=== PATIENT | male | born 1955 | race African-American/Black ===

== ENCOUNTER 2017-04-21 09:13 | Emergency (ER) | payer MEDICAID, OTHER ==
[~2017-04-21] VITALS: Ht 177.8 cm; Wt 152.0 kg
[2017-04-21] MEDS ORDERED: METF500T4 PO (09:19)
[2017-04-21] MEDS ORDERED: MORPHINE SULFATE 4 MG/ML CPJ (NOT FOR IM USE) IV STA (09:40)
[2017-04-21] MEDS ORDERED: ONDANSETRON HCL 4MG/2ML VIAL IV STA (09:40)
[2017-04-21 10:04] LABS: BASOPHILS % 0.4 % (0.0-2.0); EOSINOPHILS % 1.5 % (0.0-5.0); HEMOGLOBIN. 12.3 g/dL (14.0-18.0); LYMPHOCYTES % 16.2 % (20.0-50.0); MEAN CORPUSCULAR HEMOGLOBIN 22.6 pg (28.0-32.0); MEAN CORPUSCULAR VOLUME 71.9 fL (80.0-94.0); MEAN PLATELET VOLUME 9.9 fl (7.4-10.4); MONOCYTES % 13.4 % (2.0-8.0); NEUTROPHILS % 68.5 % (40.0-76.0); PLATELET 158 x1000/uL (130-400); RED BLOOD CELL COUNT 5.42 mill/uL (4.7-6.1); RED CELL DISTRIBUTION WIDTH 16.1 % (11.6-14.6)
[2017-04-21 10:11] LABS: PROTHROMBIN TIME 10.1 sec (9.4-11.6)
[2017-04-21 10:16] LABS: CHLORIDE 105 mEq/L (98-107)
[2017-04-21 10:20] LABS: TROPONIN I < 0.02 ng/mL (0.00-0.04)
[2017-04-21 11:23] LABS: CLARITY URINE CLEAR (CLEAR); COLOR URINE YELLOW (YELLOW); KETONES URINE TRACE (NEGATIVE); LEUKOCYTE ESTERASE URINE TRACE (NEGATIVE); NITRITE URINE NEGATIVE (NEGATIVE); OCCULT BLOOD URINE NEGATIVE (NEGATIVE); PROTEIN URINE NEGATIVE (NEGATIVE)
[2017-04-21] MEDS ORDERED: CLONIDINE 0.1MG TABLET PO ONE (12:15)
[2017-04-21] MEDS ORDERED: CEFTRIAXONE 1 G PREMIX 50 ML IV ONE (12:15)
[2017-04-21 14:19] VITALS: BP 128/72
== END 2017-04-21 14:31 | disposition home or self-care (01) ==
LOC: ER 09:22
DX: M54.89 Other dorsalgia (principal); N39.0 Urinary tract infection, site not specified; M13.862 Other specified arthritis, left knee; J45.909 Unspecified asthma, uncomplicated; I10 Essential (primary) hypertension; E11.9 Type 2 diabetes mellitus without complications; F12.10 Cannabis abuse, uncomplicated; E66.01 Morbid (severe) obesity due to excess calories; F17.210 Nicotine dependence, cigarettes, uncomplicated; Z68.42 Body mass index [BMI] 45.0-49.9, adult; Z71.6 Tobacco abuse counseling; Z87.828 Personal history of other (healed) physical injury and trauma
CPT/HCPCS: 36415; 71045; 73560; 80053; 81003; 83605; 83690; 83880; 84484; 85025; 85610; 93005; 96365; 96375; 99285; 99406; J0696; J2270; J2405

== ENCOUNTER 2017-11-10 13:12 | Emergency (ER) | payer MEDICAID ==
[~2017-11-10] VITALS: Ht 175.3 cm; Wt 120.0 kg
[~2017-11-10 13:12] MED LIST: METF500T6 PO
[2017-11-10 14:52] LABS: CHLORIDE 102 mEq/L (98-107)
[2017-11-10 15:39] LABS: BASOPHILS % 0.3 % (0.0-2.0); EOSINOPHILS % 1.2 % (0.0-5.0); HEMATOCRIT. 33.2 % (42.0-52.0); HEMOGLOBIN. 10.7 g/dL (14.0-18.0); LYMPHOCYTES % 22.7 % (20.0-50.0); MEAN CORPUSCULAR VOLUME 71.5 fL (80.0-94.0); MEAN PLATELET VOLUME 4.4 fl (7.4-10.4); MONOCYTES % 10.7 % (2.0-8.0); NEUTROPHILS % 65.1 % (40.0-76.0); RED BLOOD CELL COUNT 4.65 mill/uL (4.7-6.1); RED CELL DISTRIBUTION WIDTH 16.4 % (11.6-14.6)
[2017-11-10 15:48] LABS: PLATELET 9 x1000/uL (130-400)
[2017-11-10 16:46] LABS: PLATELET ESTIMATE MARKEDLY DECREASED
[2017-11-10 17:30] VITALS: BP 138/78
[2017-11-11] MEDS ORDERED: OXYC-610 PO (18:25)
[2017-11-11] MEDS ORDERED: FURO40TA5 PO (18:25)
[2017-11-11] MEDS ORDERED: HYDR12.54 PO (18:25)
[2017-11-11] MEDS ORDERED: CALC-3 PO (18:25)
[2017-11-11] MEDS ORDERED: SIMV20TA6 PO (18:25)
[2017-11-11] MEDS ORDERED: MULT-1146 PO (18:25)
[2017-11-11] MEDS ORDERED: LEVO200T8 PO (18:25)
[2017-11-11] MEDS ORDERED: BENA10TA10 PO (18:25)
[2017-11-11] MEDS ORDERED: METF500T6 PO (18:25)
[2017-11-11] MEDS ORDERED: ASPI-1158 PO (18:25)
== END 2017-11-10 17:35 | disposition home or self-care (01) ==
LOC: ER 13:24
DX: H53.2 Diplopia (principal); D69.6 Thrombocytopenia, unspecified; J45.909 Unspecified asthma, uncomplicated; E11.9 Type 2 diabetes mellitus without complications; E78.00 Pure hypercholesterolemia, unspecified; I10 Essential (primary) hypertension; E05.90 Thyrotoxicosis, unspecified without thyrotoxic crisis or storm; F12.10 Cannabis abuse, uncomplicated
CPT/HCPCS: 36415; 70450; 80053; 85025; 99285